=== PATIENT | female | born 1990 | race Caucasian/White ===

== ENCOUNTER 2016-08-07 22:09 | Emergency (ER) | payer BC, OTHER ==
[2016-08-07 22:18] VITALS: BP 128/74; PULSE 96; TEMP 98.6; BMI 32.0
[2016-08-07 23:16] LABS: BASOPHIL 0.2 % (0-2.0); MCH 27.4 pg (25.7-33.7); MCHC 33.4 g/dl (32.0-36.0); MEAN CELL VOLUME 82.1 fl (80-96); MEAN PLT VOLUME 7.3 fl (7.5-11.1); NEUTROPHILS 54.9 % (42.8-82.8); PLATELET COUNT 261 K/MM3 (134-434); RDW 13.7 % (11.6-15.6); WHITE BLOOD COUNT 11.3 K/mm3 (4.0-10.0)
[2016-08-07] MEDS ORDERED: SODIUM CHLORIDE 1,000 ML IV STA (23:16)
--- NOTE | 2016-08-07 23:16 | PDOC ---
History of Present Illness - History of Present Illness Initial Comments: 08/07/16 23:38 Patient is a 26 year old female (16 weeks, LNMP: 06/26/16) with no significant medical hx who is presenting to the ED with two days of vaginal bleeding with some mild abdominal cramping. The patient reports that her bleeding is similar to spotting and not as heavy as her menses. She mostly notices when she wipes and reports that her blood is bright red. The patient also denies any factors that aggravate or alleviate her abdominal cramping. Patient had one US prior but states that they were not able to visualize an IUP. Denies any vaginal discharge, other complaints, lightheadedness, chest pain, nausea, vomiting, or diarrhea. Denies hx of prior ectopic or miscarriage. <Rebecca Carreno - Last Filed: 08/08/16 01:45> - General History Source: Patient <Angelica Colbert - Last Filed: 08/08/16 02:24> - General Chief Complaint: Vaginal Bleeding Stated Complaint: VAGINAL BLEEDING Past History <Rebecca Carreno - Last Filed: 08/08/16 01:45> - Past Medical History Asthma: No Cancer: No Cardiac Disorders: No Diabetes: No HTN: No Seizures: No Thyroid Disease: No - Reproductive History Is Patient Now?: Yes (#): 1 Para: 1 Therapeutic (s) & number: No - Psycho/Social/Smoking Cessation Hx Suicidal Ideation: No Smoking Status: No Smoking History: Never smoked Have you smoked in the past 12 months: No Number of Cigarettes Smoked Daily: 0 Hx Alcohol Use: No Drug/Substance Use Hx: No Hx Substance Use Treatment: No <Angelica Colbert - Last Filed: 08/08/16 02:24> - Past Medical History Allergies/Adverse Reactions: Allergies Allergy/AdvReac Type Severity Reaction Status Date / Time No Known Allergies Allergy Verified 08/07/16 22:16 Home Medications: Ambulatory Orders NK [No Known Home Medication] 08/21/15 Review of Systems - Review of Systems Comments:: 08/07/16 23:38 GENERAL/CONSTITUTIONAL: No fever or chills. No weakness. HEAD, EYES, EARS, NOSE AND THROAT: No change in vision. No ear pain or discharge. No sore throat. CARDIOVASCULAR: No chest pain or shortness of breath. RESPIRATORY: No cough, wheezing, or hemoptysis. GASTROINTESTINAL: Abdominal cramping. No nausea, vomiting, diarrhea or constipation. GENITOURINARY: Vaginal bleeding. No dysuria, frequency, or change in urination. MUSCULOSKELETAL: No joint or muscle swelling or pain. No neck or back pain. ENDOCRINE: No increased thirst. No abnormal weight change. SKIN: No rash NEUROLOGIC: No headache, vertigo, loss of consciousness, or change in strength/ sensation. <Rebecca Carreno - Last Filed: 08/08/16 01:45> *Physical Exam - Vital Signs Last Vital Signs Temp Pulse Resp BP Pulse Ox 98.6 F 96 H 18 128/74 99 08/07/16 22:16 08/07/16 22:16 08/07/16 22:16 08/07/16 22:16 08/07/16 22:16 - Physical Exam Comments: 08/07/16 23:39 GENERAL: Awake, alert, and fully oriented, in no acute distress HEAD: No signs of trauma EYES: PERRLA, EOMI, sclera anicteric, conjunctiva clear ENT: Auricles normal inspection, hearing grossly normal, nares patent, oropharynx clear without exudates. Moist mucosa NECK: Normal ROM, supple, no lymphadenopathy, JVD, or masses LUNGS: Breath sounds equal, clear to auscultation bilaterally. No wheezes, and no crackles HEART: Regular rate and rhythm, normal S1 and S2, no murmurs, rubs or gallops ABDOMEN: Soft, nontender, normoactive bowel sounds. No guarding, no rebound. No masses EXTREMITIES: Normal range of motion, no edema. No clubbing or cyanosis. No cords, erythema, or tenderness NEUROLOGICAL: Cranial nerves II through XII grossly intact. Normal speech, normal gait SKIN: Warm, Dry, normal turgor, no rashes or lesions noted. HEMATOLOGIC/LYMPHATIC: No anemia, easy bleeding, or history of blood clots. ALLERGIC/IMMUNOLOGIC: No hives or skin allergy. PELVIC: Os is opened 2 mm. Scant blood vaginal vault. No adnexal tenderness or fullness. No CMT. <Rebecca Carreno - Last Filed: 08/08/16 01:45> - Vital Signs Last Vital Signs Temp Pulse Resp BP Pulse Ox 98.6 F 96 H 18 128/74 99 08/07/16 22:16 08/07/16 22:16 08/07/16 22:16 08/07/16 22:16 08/07/16 22:16 <FilemonAngelica - Last Filed: 08/08/16 02:24> ED Treatment Course - LABORATORY CBC & Chemistry Diagram: 08/07/16 22:42 08/07/16 22:42 - ADDITIONAL ORDERS Additional order review: 08/07/16 22:42 RBC 4.12 MCV 82.1 MCHC 33.4 RDW 13.7 MPV 7.3 L Neutrophils % 54.9 Lymphocytes % 37.7 Monocytes % 6.2 Eosinophils % 1.0 Basophils % 0.2 - RADIOLOGY Radiograph Interpretation: 08/08/16 01:46 [employer] Librarian: (ben) Report Date: 08/08/2016 00:49:00 Report Status: Preliminary Begin of Report Content Referring Physician: Angelica Colbert Patient Name: Theodora Paredes THIS IS A PRELIMINARY REPORT FROM IMAGING CHIEF SERVICE OBSERVER IMAGES: 37 EXAM DATE AND TIME: 2016-08-08 00:49:18.0 EXAM: ULTRASOUND PELVIS, COMPLETE AND TRANSVAGINAL ULTRASOUND AND DUPLEX SCAN PELVIS, INCOMPLETE No ovarian torsion. Color flow with appropriate arterial waveforms. No free fluid. Small intrauterine possible gestational sac 4 weeks 5 days by measurement without discrete yolk sac or pole. Endometrial stripe complex 10 mm thick. No adnexal masses appreciated. Findings could represent early gestation, but advise correlation with serial quantitative beta-hCG and follow- up ultrasound as clinically indicated to exclude possibility of nonvisualized ectopic . Unremarkable visualized portion of bladder. THIS DOCUMENT HAS BEEN ELECTRONICALLY SIGNED Mary Kate David M.D. 08/08/2016 01:34 HARPAL Birght Please call Imaging Special Education Supervisor [phone] ([phone]) with questions. End of Report Content <Rebecca Carreno - Last Filed: 08/08/16 01:45> - LABORATORY CBC & Chemistry Diagram: 08/07/16 22:42 08/07/16 22:42 <Angelica Colbert - Last Filed: 08/08/16 02:24> Medical Decision Making - Medical Decision Making 08/07/16 23:14 26 yo F wit at 6 weeks by LMP 06/26/16 here with vaginal bleeding. does have mild cramping. started 2 days ago. no lightheaded. no prior ectopic or miscarriage. no mod fators. on exam awake alert, lung clear no wheeze, heart RR Rno m/r/g abd soft NT ND. pelvic scant blood in vault, os open fingertip, no adnexal tenderness. ext wwp skin warm and dry. differential: ectopic vs. threatened ab vs. incomplete ab. plan labs blood type , hcg, cbc tvus. <Angelica Colbert - Last Filed: 08/08/16 02:24> *DC/Admit/Observation/Transfer - Attestations Scribe Attestion: 08/07/16 23:39 Documentation prepared by Rebecca Carreno, acting as clinical specialist medical device for Angelica Colbert MD. <Rebecca Carreno - Last Filed: 08/08/16 01:45> - Discharge Dispostion Admit: No <Angelica Colbert - Last Filed: 08/08/16 02:24> Diagnosis at time of Disposition: Threatened - Discharge Dispostion Disposition: HOME - Patient Instructions Printed Discharge Instructions: Threatened Additional Instructions: you need to follow up with obstetrics. you will need a repeat ultrasound and lab test within one week as you are too early in to detect anything on ultrasound. your hcg level is 121 today. return for severe or worsening pain or any concerns. you can follow up with the womens clinic at [facility] call [phone] to schedule.
[2016-08-07 23:44] LABS: URINE APPEARANCE CLEAR; URINE BILIRUBIN NEGATIVE (NEGATIVE); URINE COLOR LTYELLOW; URINE GLUCOSE (UA) NEGATIVE (NEGATIVE); URINE KETONE NEGATIVE (NEGATIVE); URINE LEUK ESTERASE NEGATIVE (NEGATIVE); URINE NITRITE NEGATIVE (NEGATIVE); URINE PROTEIN NEGATIVE (NEGATIVE); URINE UROBILINOGEN NEGATIVE E.U./dl (0.2-1.0)
[2016-08-08] MEDS ORDERED: ACETAMINOPHEN 325 MG TABLET (FP) ONE (00:44)
[2016-08-08 00:57] LABS: ALBUMIN 3.6 g/dl (3.4-5.0); ANION GAP 12 (8-16); BILIRUBIN,TOTAL 0.2 mg/dL (0.2-1.0); CALCIUM 8.2 mg/dL (8.5-10.1); CO2 26 mmol/L (21-32); CREATININE 0.7 mg/dL (0.55-1.02); GLUCOSE,RANDOM 101 mg/dL (74-106); SGOT/AST 17 U/L (15-37); SGPT/ALT 27 U/L (12-78); TOT PROT 6.8 g/dl (6.4-8.2)
[2016-08-08 00:59] LABS: ALK PHOS 56 U/L (45-117)
[2016-08-08 01:06] LABS: URINE BLOOD 2+ (NEGATIVE)
[2016-08-08 02:08] LABS: URINE MUCUS RARE; URINE RBC 2 /hpf (0-3); URINE WBC 1 /hpf (3-5)
== END 2016-08-08 02:29 | disposition home or self-care (01) ==
LOC: JER 22:09
DX: O20.0 Threatened abortion (principal); Z3A.01 Less than 8 weeks gestation of pregnancy
CPT/HCPCS: 36415; 76817-TC; 80053; 81003; 81015; 84702; 85025; 86850; 86900; 86901; 99283-25

== ENCOUNTER 2017-01-11 12:27 | Emergency (ER) | payer BC, OTHER ==
[2017-01-11 12:31] VITALS: TEMP 98.3; BMI 32.0
[2017-01-11 13:26] LABS: BASOPHIL 0.3 % (0-2.0); EOSINOPHIL 0.5 % (0-4.5); MCH 26.9 pg (25.7-33.7); MCHC 32.9 g/dl (32.0-36.0); MEAN CELL VOLUME 81.7 fl (80-96); MEAN PLT VOLUME 7.2 fl (7.5-11.1); NEUTROPHILS 76.5 % (42.8-82.8); PLATELET COUNT 237 K/MM3 (134-434); WHITE BLOOD COUNT 10.5 K/mm3 (4.0-10.0)
--- NOTE | 2017-01-11 13:42 | PDOC ---
History of Present Illness - General Chief Complaint: Pain Stated Complaint: ABD CRAMPING (7 WKS ) Time Seen by Provider: 01/11/17 12:45 - History of Present Illness Initial Comments: 01/11/17 13:13 Patient is a 26 y.o. (1 child, 1 miscarriage) at 5 weeks gestation who presents c/o 1 day h/o of R sided lower back pain as well as abdominal cramping as well as vaginal spotting yesterday (01/10). Patient became concerned she was having a spontaneous and presented to our ED. Patient denies any fevers, chills, vomiting, chest pain or shortness of breath but does endorse nausea though she has been tolerating PO intake. Patient notes her LMP was in early November and she has been receiving pre-oscar care at [facility]. Surgical: none NKDA PMD Social: denies cigarettes, denies alcohol, denies recreational drugs Past History - Past Medical History Allergies/Adverse Reactions: Allergies Allergy/AdvReac Type Severity Reaction Status Date / Time No Known Allergies Allergy Verified 01/11/17 12:31 Home Medications: Ambulatory Orders NK [No Known Home Medication] 08/21/15 Asthma: No Cancer: No Cardiac Disorders: No Diabetes: No HTN: No Seizures: No Thyroid Disease: No - Reproductive History (#): 1 Para: 1 Therapeutic (s) & number: No - Suicide/Smoking/Psychosocial Hx Smoking Status: No Smoking History: Never smoked Have you smoked in the past 12 months: No Number of Cigarettes Smoked Daily: 0 Hx Alcohol Use: No Drug/Substance Use Hx: No Hx Substance Use Treatment: No Review of Systems - Review of Systems Constitutional: No: Chills, Fever Respiratory: No: Shortness of Breath Cardiac (ROS): No: Chest Pain ABD/GI: Yes: Abdominal cramping. No: Constipated, Diarrhea, Nausea, Vomiting All Other Systems: Reviewed and Negative *Physical Exam - Vital Signs Last Vital Signs Temp Pulse Resp BP Pulse Ox 98.3 F 86 20 120/63 98 01/11/17 12:28 01/11/17 12:28 01/11/17 12:28 01/11/17 12:28 01/11/17 12:28 - Physical Exam General Appearance: Yes: Nourished, Appropriately Dressed Neck: positive: Trachea midline, Supple Respiratory/Chest: positive: Lungs Clear Cardiovascular: positive: S1, S2 Female Pelvic Exam: positive: normal external exam, cervical os closed, other ( Cervical os closed; no active bleed, no blood in vaginal vault). negative: CMT Gastrointestinal/Abdominal: positive: Normal Bowel Sounds, Soft Musculoskeletal: negative: CVA Tenderness (R), CVA Tenderness (L) Integumentary: positive: Normal Color, Dry, Warm Neurologic: positive: Fully Oriented, Alert Procedures - Bedside Ultrasound Bedside Ultrasound: pole framer machine Remarks: 01/11/17 19:24 IUP appreciated with visible Heart tones; small amount of free fluid in pelvic cavity. ED Treatment Course - LABORATORY CBC & Chemistry Diagram: 01/11/17 13:08 01/11/17 13:10 - RADIOLOGY Radiology Studies Ordered: Category Date Time Status TRANSVAGINAL US PREG [US] Stat Ultrasound 01/11/17 13:09 Ordered Medical Decision Making - Medical Decision Making 01/11/17 17:04 Patient is a 26 y.o. female at a self-estimated 5 weeks gestation who presents with RLQ abdominal pain and resolved vaginal spotting. Initial DDx is for spontaneous vs. ectopic . PLAN: 1. Transvaginal U/S 2. Serum HCG 3. CBC, CMP Reassess 01/11/17 19:25 Bedside Transvaginal U/S shows IUP with small amount of fluid in pelvic cavity. CBC shows no leukocytosis, CMP negative for any electrolyte abnormalities 01/11/17 19:26 Formal Transvaginal U/S shows single IUP dated @ 6 weeks and 3 days; FHR 127 bpm and confirms small amount of free fluid in the pelvis. As patient is improved, ambulatory, tolerating PO intake and understands her follow-up care patient is discharged home with return precautions. *DC/Admit/Observation/Transfer Diagnosis at time of Disposition: - Discharge Dispostion Disposition: HOME Condition at time of disposition: Good Admit: No - Referrals Referrals: Sukhdev Malhotra MD [Primary Care Provider] - - Patient Instructions Printed Discharge Instructions: DI for Vaginal Bleeding During Additional Instructions: Please follow up with your livestock counter in the next 3 days. Please return to the ED should you experience repeated vaginal spotting or an increase in severity of abdominal cramping. A copy of your transvaginal ultrasound and labs have been provided to you to take to your livestock counter appointment.
[2017-01-11 13:50] LABS: ALBUMIN 3.7 g/dl (3.4-5.0); ALK PHOS 48 U/L (45-117); ANION GAP 11 (8-16); BILIRUBIN,TOTAL 0.3 mg/dL (0.2-1.0); CALCIUM 8.2 mg/dL (8.5-10.1); CO2 26 mmol/L (21-32); CREATININE 0.5 mg/dL (0.55-1.02); GLUCOSE,RANDOM 131 mg/dL (74-106); SGOT/AST 12 U/L (15-37); SGPT/ALT 18 U/L (12-78); TOT PROT 7.2 g/dl (6.4-8.2)
[2017-01-11 13:53] LABS: URINE APPEARANCE CLOUDY; URINE BILIRUBIN NEGATIVE (NEGATIVE); URINE BLOOD NEGATIVE (NEGATIVE); URINE COLOR YELLOW; URINE GLUCOSE (UA) NEGATIVE (NEGATIVE); URINE KETONE TRACE (NEGATIVE); URINE NITRITE NEGATIVE (NEGATIVE); URINE PROTEIN NEGATIVE (NEGATIVE); URINE UROBILINOGEN NEGATIVE mg/dL (0.2-1.0)
[2017-01-11 17:31] VITALS: BP 118/65; PULSE 72
[2017-01-11 17:37] LABS: URINE LEUK ESTERASE Negative (NEGATIVE)
== END 2017-01-11 17:45 | disposition home or self-care (01) ==
LOC: JER 12:27
DX: O26.891 Other specified pregnancy related conditions, first trimester (principal); R10.30 Lower abdominal pain, unspecified; Z3A.01 Less than 8 weeks gestation of pregnancy
CPT/HCPCS: 36415; 76817-TC; 80053; 81003; 84702; 84703; 85025; 99285-25

== ENCOUNTER 2017-02-17 09:22 | Emergency (ER) | payer BC, OTHER ==
[2017-02-17 09:45] VITALS: BP 121/55; PULSE 88; TEMP 98; BMI 32.5
[2017-02-17 10:49] LABS: URINE APPEARANCE CLEAR; URINE BILIRUBIN NEGATIVE (NEGATIVE); URINE BLOOD NEGATIVE (NEGATIVE); URINE COLOR LT. YELLOW; URINE GLUCOSE (UA) NEGATIVE (NEGATIVE); URINE KETONE NEGATIVE (NEGATIVE); URINE NITRITE NEGATIVE (NEGATIVE); URINE PROTEIN NEGATIVE (NEGATIVE); URINE UROBILINOGEN 0.2 mg/dL (0.2-1.0)
[2017-02-17] MEDS ORDERED: ACETAMINOPHEN 500 MG TABLET (FP) PO ONE (11:09)
[2017-02-17] MEDS ORDERED: ACETAMINOPHEN 325 MG TABLET (FP) ONE (11:15)
--- NOTE | 2017-02-17 11:24 | PDOC ---
History of Present Illness - General Chief Complaint: Back Pain Stated Complaint: BACK PAIN (11 WKS ) Time Seen by Provider: 02/17/17 10:19 History Source: Patient Exam Limitations: No Limitations - History of Present Illness Travel History: No Initial Comments: 02/17/17 11:48 26-year-old female complaints of left lower back pain rated down her left buttock to the back of her left leg intimately for the past week. Patient states took Tylenol with moderate improvement but states pain is worsened with prolonged standing or ambulation. Patient denies left lower extremity edema, low back pain history, recent fall, change in urine pattern, change in bowel pattern, or rash. Patient states is 11 weeks and under the care of Dr. Sharma. Patient states had an ultrasound done 2 weeks ago with normal IUP findings. Patient has no complaints of vaginal discharge, vaginal bleeding, dyspareunia, but does complain of lower mid suprapubic pressure intermittently for the past few days. Timing/Duration: reports: intermittent Quality: reports: moderate Abdominal Pain Onset Location: reports: suprapubic Pain Radiation: reports: back Aggravating Factors: improves with: Movement Alleviating Factors: improves with: Rest Past History - Travel Traveled outside of the country in the last 30 days: No Close contact w/someone who was outside of country & ill: No - Past Medical History Allergies/Adverse Reactions: Allergies Allergy/AdvReac Type Severity Reaction Status Date / Time No Known Allergies Allergy Verified 02/17/17 09:43 Home Medications: Ambulatory Orders Dke095/FA/Omega3/Dha/Fish Oil [ Gummies] 1 each PO DAILY 01/24/17 Asthma: No Cancer: No Cardiac Disorders: No COPD: No Diabetes: No HTN: No Seizures: No Thyroid Disease: No - Reproductive History Is Patient Now?: Yes (#): 3 Para: 1 Therapeutic (s) & number: No Spontaneous : 1 - Suicide/Smoking/Psychosocial Hx Smoking Status: No Smoking History: Never smoked Have you smoked in the past 12 months: No Number of Cigarettes Smoked Daily: 0 Hx Alcohol Use: No Drug/Substance Use Hx: No Substance Use Type: None Hx Substance Use Treatment: No Patient Lives Alone: No Lives with/in: spouse/SO Review of Systems - Review of Systems Able to Perform ROS?: Yes Constitutional: No: Symptoms Reported HEENTM: No: Symptoms Reported Respiratory: No: Symptoms reported Cardiac (ROS): No: Symptoms Reported ABD/GI: Yes: Abdominal cramping : No: Symptoms Reported Musculoskeletal: Yes: Back Pain, Muscle Pain (left buttock) Integumentary: No: Symptoms Reported Neurological: No: Symptoms reported *Physical Exam - Vital Signs Last Vital Signs Temp Pulse Resp BP Pulse Ox 98.0 F 88 18 121/55 100 02/17/17 09:43 02/17/17 09:43 02/17/17 09:43 02/17/17 09:43 02/17/17 09:43 - Physical Exam General Appearance: Yes: Nourished, Appropriately Dressed. No: Apparent Distress Neck: positive: Normal Thyroid, Supple Respiratory/Chest: positive: Lungs Clear, Normal Breath Sounds. negative: Respiratory Distress, Accessory Muscle Use Cardiovascular: positive: Regular Rhythm, Regular Rate. negative: Murmur Female Pelvic Exam: positive: normal external exam (no discharge or bleding) Gastrointestinal/Abdominal: positive: Normal Bowel Sounds, Soft, Distended (mild ), Tenderness (midsuprapubic) Musculoskeletal: negative: Vertebral Tenderness (no midline tenderness. + lt paraspinous tenderness at l5 level. + lt sciatica tenderness) Extremity: positive: Normal Capillary Refill. negative: Pedal Edema Integumentary: positive: Normal Color, Warm, Moist Neurologic: positive: Normal Mood/Affect, Motor Strength 5/5 (ambulatory) ED Treatment Course - ADDITIONAL ORDERS Additional order review: Laboratory Results 02/17/17 10:40 Urine Color Lt. yellow Urine Appearance Clear Urine pH 6.0 Ur Specific [place] 1.025 Urine Protein Negative Urine Glucose (UA) Negative Urine Ketones Negative Urine Blood Negative Urine Nitrite Negative Urine Bilirubin Negative Urine Urobilinogen 0.2 - RADIOLOGY Radiology Studies Ordered: Category Date Time Status <14WKS US [US] Stat Ultrasound 02/17/17 11:09 Ordered Medical Decision Making - Medical Decision Making 02/17/17 11:26 Patient here with left lower back pain rating down her left buttock. Patient also states with complaints of intermittent mid suprapubic pressure. Patient denies urinary complaints fever, vaginal bleeding or discharge. Patient on exam had mid suprapubic tenderness and left paraspinous tenderness at L5 level along with left sciatic tenderness. Patient ordered for Tylenol 975 mg., UA, urine culture and ultrasound. 02/17/17 13:39 Laboratory Tests 02/17/17 10:40 Urine Ketones Negative Urine Blood Negative Urine Nitrite Negative Urine Bilirubin Negative Ur Leukocyte Esterase Pending Ultrasound shows a single viable intrauterine gestation approximately 12 weeks 1 day. Pt states feeling better *DC/Admit/Observation/Transfer Diagnosis at time of Disposition: Sciatica of left side, Abdominal pain during in first trimester - Discharge Dispostion Disposition: HOME Condition at time of disposition: Good - Referrals Referrals: Sukhdev Malhotra MD [Primary Care Provider] - - Patient Instructions Printed Discharge Instructions: DI for Sciatica, DI for Abdominal Pain -- Early Additional Instructions: May take Tylenol for discomfort and please follow-up with your LITIGATION SECRETARY as needed. - Post Discharge Activity
[2017-02-17 17:11] LABS: URINE LEUK ESTERASE Negative (NEGATIVE)
== END 2017-02-17 13:52 | disposition home or self-care (01) ==
LOC: JERFT 09:22 → JER 09:22
DX: O99.351 Diseases of the nervous system complicating pregnancy, first trimester (principal); M54.42 Lumbago with sciatica, left side; Z3A.11 11 weeks gestation of pregnancy
CPT/HCPCS: 76801-TC; 81003; 99282-25

== ENCOUNTER 2017-07-11 15:52 | Emergency (ER) | payer BC, OTHER ==
[2017-07-11 16:00] VITALS: BP 115/68; PULSE 112; TEMP 98.2; BMI 34.7
[2017-07-11] MEDS ORDERED: ACETAMINOPHEN 325 MG TABLET (FP) PO ONE (16:54)
--- NOTE | 2017-07-11 16:55 | PDOC ---
History of Present Illness - General Chief Complaint: Respiratory Stated Complaint: COUGH (32 WKS ) Time Seen by Provider: 07/11/17 16:43 History Source: Patient Exam Limitations: No Limitations - History of Present Illness Initial Comments: 07/11/17 16:50 Mother comes in with complaints of congestion, moist nonproductive cough, with no fevers. Has used Tylenol with minimal resolved. No purulent drainage from nose, denies phlegm production, states throat is sore, and has copious postnasal drainage. Timing/Duration: reports: just prior to arrival, intermittent Severity: reports: mild, moderate Associated Symptoms: reports: cough, nasal congestion, nasal drainage. denies: fever/chills Past History - Travel Traveled outside of the country in the last 30 days: No Close contact w/someone who was outside of country & ill: No - Past Medical History Allergies/Adverse Reactions: Allergies Allergy/AdvReac Type Severity Reaction Status Date / Time No Known Allergies Allergy Verified 07/11/17 16:00 Home Medications: Ambulatory Orders Pnv No.103/Folic/Om3s/Fish Oil [ Gummies] 1 each PO DAILY 01/24/17 Asthma: No Cancer: No Cardiac Disorders: No COPD: No Diabetes: No HTN: No Seizures: No Thyroid Disease: No - Reproductive History (#): 3 Para: 1 Therapeutic (s) & number: No Spontaneous : 1 - Suicide/Smoking/Psychosocial Hx Smoking Status: No Smoking History: Never smoked Have you smoked in the past 12 months: No Number of Cigarettes Smoked Daily: 0 Hx Alcohol Use: No Drug/Substance Use Hx: No Substance Use Type: None Hx Substance Use Treatment: No Review of Systems - Review of Systems Able to Perform ROS?: Yes Is the patient limited Uzbek proficient: Yes Constitutional: Yes: Symptoms Reported, See HPI, Malaise. No: Fever HEENTM: Yes: Symptoms Reported, See HPI, Nose Congestion Respiratory: Yes: Cough. No: Shortness of Breath, Wheezing Musculoskeletal: Yes: See HPI All Other Systems: Reviewed and Negative *Physical Exam - Vital Signs Last Vital Signs Temp Pulse Resp BP Pulse Ox 98.2 F 112 H 20 115/68 99 07/11/17 15:58 07/11/17 15:58 07/11/17 15:58 07/11/17 15:58 07/11/17 15:58 - Physical Exam General Appearance: Yes: Nourished, Appropriately Dressed, Apparent Distress, Mild Distress HEENT: positive: AKBAR (glassy), Normal ENT Inspection, TMs Normal (congested but landmarks easily visualized), Pharynx Normal, Nasal Congestion, Rhinorrhea. negative: Pharyngeal Erythema Neck: positive: Supple. negative: Tender Respiratory/Chest: positive: Lungs Clear, Normal Breath Sounds. negative: Wheezing Gastrointestinal/Abdominal: positive: Soft (gravid belly) Musculoskeletal: negative: CVA Tenderness Extremity: positive: Normal Capillary Refill, Normal Inspection Integumentary: positive: Normal Color, Dry, Warm, Pale Neurologic: positive: game tester II-XII NML intact, Fully Oriented, Alert, Normal Mood/ Affect, Normal Response, Motor Strength /5 Progress Note - Progress Note Progress Note: Upper respiratory infection, mild. No evidence of bacterial infection therefore will hold antibiotic therapy and encourage conservative measures to avoid complications with . *DC/Admit/Observation/Transfer Diagnosis at time of Disposition: Common cold virus - Discharge Dispostion Disposition: HOME Condition at time of disposition: Stable Admit: No - Referrals - Patient Instructions Additional Instructions: Rest, drink lots of fluids: Teas, water, soups, Pedialyte Saltwater gargles Steamy showers/seem to face break up mucus Avoid contact with others until fevers and cough resolved Lots of handwashing and good hygiene Tylenol for fever and pain May use Benadryl for an antihistamine Followup with private physician in one to 2 days as needed Return to emergency department for worsened symptoms, fevers, dehydration - Post Discharge Activity Forms/Work/School Notes: Back to Work
[2017-07-11] MEDS ORDERED: ACETAMINOPHEN 325 MG TABLET (FP) ONE (16:56)
== END 2017-07-11 16:58 | disposition home or self-care (01) ==
LOC: JERFT 15:52
DX: O26.891 Other specified pregnancy related conditions, first trimester (principal); O99.513 Diseases of the respiratory system complicating pregnancy, third trimester; J06.9 Acute upper respiratory infection, unspecified; B97.89 Other viral agents as the cause of diseases classified elsewhere; Z3A.32 32 weeks gestation of pregnancy
CPT/HCPCS: 99281-25

== ENCOUNTER 2018-03-21 18:57 | Emergency (ER) | payer OTHER ==
[2018-03-21 19:19] VITALS: BP 109/54; PULSE 123; TEMP 101.7; BMI 26.9
[2018-03-21] MEDS ORDERED: ACETAMINOPHEN 500 MG TABLET (FP) PO ONE (19:26)
[2018-03-21] MEDS ORDERED: SODIUM CHLORIDE 1,000 ML IV STA (19:31)
--- NOTE | 2018-03-21 19:41 | PDOC ---
History of Present Illness - General Chief Complaint: Cold Symptoms Stated Complaint: ABDOMINAL PAIN, BODYACHE, FEVER Time Seen by Provider: 03/21/18 19:17 History Source: Patient Exam Limitations: Clinical Condition - History of Present Illness Initial Comments: 03/21/18 19:35 Patient with no significant past medication present with complaint of intermittent cough, weakness, fever, sore throat, body aches, diarrhea and abdominal pain. Patient reported increased pain to epigastric area with food. She reported feeling dizzy this afternoon. Denies syncope. Denies vomiting but reported mild nausea. Patient denies any other symptoms. Timing/Duration: 24 hours Past History - Past Medical History Allergies/Adverse Reactions: Allergies Allergy/AdvReac Type Severity Reaction Status Date / Time No Known Allergies Allergy Verified 03/21/18 19:12 Home Medications: Ambulatory Orders Ondansetron [Zofran Odt -] 4 mg SL BID #14 od.tablet 03/21/18 Asthma: No Cancer: No Cardiac Disorders: No COPD: No Diabetes: No HTN: No Seizures: No Thyroid Disease: No - Reproductive History (#): 3 Para: 1 Therapeutic (s) & number: No Spontaneous : 1 - Suicide/Smoking/Psychosocial Hx Smoking Status: No Smoking History: Never smoked Have you smoked in the past 12 months: No Number of Cigarettes Smoked Daily: 0 Hx Alcohol Use: No Drug/Substance Use Hx: No Substance Use Type: None Hx Substance Use Treatment: No Review of Systems - Review of Systems Able to Perform ROS?: Yes Is the patient limited Lao proficient: No Constitutional: Yes: Fever, Malaise, Weakness HEENTM: Yes: See HPI, Nose Congestion, Throat Pain. No: Blurred Vision, Recent change in vision, Ear Discharge, Nose Pain, Tinnitus, Throat Swelling, Difficulty Swallowing Respiratory: Yes: Symptoms reported, See HPI, Cough (intermittent). No: Orthopnea, Shortness of Breath, SOB with Exertion, SOB at Rest, Stridor, Wheezing, Productive cough, Hemoptysis, Other Cardiac (ROS): No: Symptoms Reported, See HPI, Chest Pain, Edema, Irregular Heart Rate, Lightheadedness, Palpitations, Syncope, Chest Tightness, Other ABD/GI: Yes: See HPI, Diarrhea, Nausea, Poor Fluid Intake, Abdominal cramping ( epigastric and right lower quadrant). No: Abdominal Distended, Abd. Pain w/ defecation, Constipated, Difficulty Swallowing, Rectal Bleeding, Vomiting : No: Symptoms Reported, Burning, Discharge, Frequency, Urgency Neurological: Yes: Headache, Weakness, Dizziness. No: Seizure, Tingling All Other Systems: Reviewed and Negative *Physical Exam - Vital Signs Last Vital Signs Temp Pulse Resp BP Pulse Ox 101.7 F H 123 H 20 109/54 L 99 03/21/18 19:12 03/21/18 19:12 03/21/18 19:12 03/21/18 19:12 03/21/18 19:12 - Physical Exam Comments: 03/21/18 19:39 GENERAL: Well developed, well nourished. Awake and alert. mild acute distress. HEENT: Normocephalic, atraumatic. PERRLA, EOMI. No conjunctival pallor. Sclera are non-icteric. Moist mucous membranes. Oropharynx is clear. NECK: Supple. Full ROM. CARDIOVASCULAR: Regular rate and rhythm. No murmurs, rubs, or gallops. Distal pulses are 2+ and symmetric. PULMONARY: No evidence of respiratory distress. Lungs clear to auscultation bilaterally. No wheezing, rales or rhonchi. ABDOMINAL: moderate tenderness to RLQ with mild tenderness to epigastric region w/o gaurding. positive psoas sign on exam with patient complaining of pain to LLQ when pressed on RLQ. Soft. Non-distended. No rebound . No organomegaly. Normoactive bowel sounds. SKIN: Warm and dry. Normal capillary refill. No rashes. NEUROLOGICAL: Alert, awake, appropriate. Gait is normal without ataxia. PSYCHIATRIC: Cooperative. Good eye contact. Appropriate mood 03/21/18 19:52 General Appearance: Yes: Nourished, Appropriately Dressed. No: Apparent Distress Moderate Sedation - Procedure Monitoring Vital Signs: Procedure Monitoring Vital Signs Temperature 101.7 F H 03/21/18 19:12 Pulse Rate 123 H 03/21/18 19:12 Respiratory Rate 20 03/21/18 19:12 Blood Pressure 109/54 L 03/21/18 19:12 O2 Sat by Pulse Oximetry (%) 99 03/21/18 19:12 ED Treatment Course - LABORATORY CBC & Chemistry Diagram: 03/21/18 19:30 03/21/18 19:30 Medical Decision Making - Medical Decision Making 03/21/18 19:41 Patient with no significant past medical history present with complaint of 24 hour history of fever, abdominal pain, nasal congestion, intermittent cough and body aches. Exam significant for moderate tenderness to right lower quadrant with positive psoas sign on exam. Patient reported feeling dizzy during exam. Rapid strep and rapid flu tests ordered. CBC, CMP and liver enzymes ordered. Beta hCG ordered to rule out . Abdominal CAT scan to be ordered to rule out appendicitis. Tylenol 1 g by mouth for fever. IV place and fluid bolus with normal saline ordered. Treat based on lab and imaging results. Patient sent to main ED for follow-up care 03/21/18 22:35 *DC/Admit/Observation/Transfer Diagnosis at time of Disposition: Gastroenteritis - Discharge Dispostion Disposition: HOME Condition at time of disposition: Stable - Prescriptions Prescriptions: Ondansetron [Zofran Odt -] 4 mg SL BID #14 od.tablet - Referrals - Patient Instructions Additional Instructions: Rest, drink lots of fluids: Teas, water, soups Nimisha jared, carbonated beverages for the bubbles May try peppermint teas Avoid heavy , spicy or fatty foods until symptoms have resolved Avoid contact with others until fevers and symptoms resolved Lots of handwashing and good hygiene Continue [id number] medications for symptomatic relief Tylenol or Motrin for fever and pain May use Zofran-one tablet dissolved on tongue as needed for nauseousness. May repeat times one every 8 hours Followup with private physician in one to 2 days as needed Return to emergency department for worsened symptoms, fevers, dehydration - Post Discharge Activity
[2018-03-21 19:49] LABS: BASO % 0.2 % (0-2.0); HEMATOCRIT 38.3 % (32.4-45.2); HEMOGLOBIN 12.3 GM/dL (10.7-15.3); LYMPH % 10.4 % (8-40); MCH 26.1 pg (25.7-33.7); MCHC 32.2 g/dl (32.0-36.0); MEAN CELL VOLUME 81.3 fl (80-96); MEAN PLT VOLUME 7.5 fl (7.5-11.1); MONO % 7.5 % (3.8-10.2); NEUT % 81.9 % (42.8-82.8); PLATELET COUNT 222 K/MM3 (134-434); RBC 4.71 M/mm3 (3.60-5.2); RDW 13.8 % (11.6-15.6); WHITE BLOOD COUNT 11.2 K/mm3 (4.0-10.0)
[2018-03-21] MEDS ORDERED: ACETAMINOPHEN 500 MG TABLET (FP) ONE (19:56)
[2018-03-21 20:00] LABS: HCG,QUALITATIVE URINE Negative
[2018-03-21 20:08] LABS: AMYLASE 60 U/L (25-115); LIPASE 149 U/L (73-393)
[2018-03-21 20:12] LABS: ALK PHOS 60 U/L (45-117); ANION GAP 7 MMOL/L (8-16); BILIRUBIN,TOTAL 0.4 mg/dL (0.2-1); BLOOD UREA NITROGEN 14 mg/dL (7-18); CALCIUM 8.1 mg/dL (8.5-10.1); CHLORIDE 103 mmol/L (98-107); CO2 26 mmol/L (21-32); CREATININE 0.8 mg/dL (0.55-1.3); GLUCOSE,RANDOM 104 mg/dL (74-106); POTASSIUM 3.9 mmol/L (3.5-5.1); SGOT/AST 13 U/L (15-37); SGPT/ALT 20 U/L (13-61); SODIUM 137 mmol/L (136-145); TOT PROT 7.7 g/dl (6.4-8.2)
[2018-03-21 20:21] LABS: URINE APPEARANCE CLEAR; URINE BILIRUBIN NEGATIVE (<2.0 mg/dL); URINE COLOR YELLOW; URINE GLUCOSE (UA) NEGATIVE (NEGATIVE); URINE KETONE NEGATIVE (NEGATIVE); URINE LEUK ESTERASE NEGATIVE (NEGATIVE); URINE NITRITE NEGATIVE (NEGATIVE); URINE PROTEIN NEGATIVE (NEGATIVE); URINE UROBILINOGEN NEGATIVE mg/dL (0.2-1.0)
--- NOTE | 2018-03-21 21:01 | PDOC ---
*Physical Exam - Vital Signs Last Vital Signs Temp Pulse Resp BP Pulse Ox 101.7 F H 123 H 20 109/54 L 99 03/21/18 19:12 03/21/18 19:12 03/21/18 19:12 03/21/18 19:12 03/21/18 19:12 - Physical Exam General Appearance: Yes: Appropriately Dressed. No: Apparent Distress HEENT: positive: Normal ENT Inspection Respiratory/Chest: positive: Lungs Clear, Normal Breath Sounds. negative: Respiratory Distress, Accessory Muscle Use Cardiovascular: positive: Regular Rhythm, Regular Rate. negative: Murmur Gastrointestinal/Abdominal: positive: Normal Bowel Sounds, Soft. negative: Tender Musculoskeletal: positive: Normal Inspection. negative: CVA Tenderness Extremity: positive: Normal Inspection, Normal Range of Motion Integumentary: positive: Normal Color, Dry, Warm Neurologic: positive: forge helper II-XII NML intact, Fully Oriented, Alert ED Treatment Course - LABORATORY CBC & Chemistry Diagram: 03/21/18 19:30 03/21/18 19:30 - ADDITIONAL ORDERS Additional order review: Laboratory Results 03/21/18 03/21/18 03/21/18 19:45 19:30 19:30 Sodium Potassium Chloride Carbon Dioxide Anion Gap BUN Creatinine Creat Clearance w eGFR Random Glucose Calcium Total Bilirubin AST ALT Alkaline Phosphatase Total Protein Albumin Total Amylase 60 Lipase 149 Urine Color Yellow Urine Appearance Clear Urine pH 7.0 Ur Specific [place] 1.024 Urine Protein Negative Urine Glucose (UA) Negative Urine Ketones Negative Urine Blood Negative Urine Nitrite Negative Urine Bilirubin Negative Urine Urobilinogen Negative Ur Leukocyte Esterase Negative Urine HCG, Qual Negative Blood Type A POSITIVE Antibody Screen Negative 03/21/18 19:30 Sodium 137 Potassium 3.9 Chloride 103 Carbon Dioxide 26 Anion Gap 7 L BUN 14 Creatinine 0.8 Creat Clearance w eGFR > 60 Random Glucose 104 Calcium 8.1 L Total Bilirubin 0.4 AST 13 L ALT 20 Alkaline Phosphatase 60 Total Protein 7.7 Albumin 4.0 Total Amylase Lipase Urine Color Urine Appearance Urine pH Ur Specific [place] Urine Protein Urine Glucose (UA) Urine Ketones Urine Blood Urine Nitrite Urine Bilirubin Urine Urobilinogen Ur Leukocyte Esterase Urine HCG, Qual Blood Type Antibody Screen 03/21/18 19:30 RBC 4.71 MCV 81.3 MCHC 32.2 RDW 13.8 MPV 7.5 Neutrophils % 81.9 D Lymphocytes % 10.4 D Monocytes % 7.5 Eosinophils % 0.0 D Basophils % 0.2 - Medications Given in the ED: ED Medications Discontinued Medications Generic Name Dose Route Start Last Admin Trade Name Hipolito PRN Reason Stop Dose Admin Acetaminophen 1,000 mg 03/21/18 19:26 03/21/18 19:56 Tylenol - PO 03/21/18 19:27 1,000 mg ONCE ONE Administration Sodium Chloride 1,000 mls @ 1,000 mls/hr 03/21/18 19:31 03/21/18 19:55 Normal Saline - IV 03/21/18 20:30 1,000 mls/hr ASDIR STA Administration Progress Note - Progress Note Progress Note: Received signout from ANGELIQUE Magana. Briefly this a 27-year-old woman is here for evaluation of cough, fevers, weakness, sore throat, body aches, abdominal pain. Influenza rapid strep testing are negative. Laboratory testing reveals a white count of 11,200 without shift. UA is benign. At present patient is pending results of CT scan to rule out appendicitis. Medical Decision Making - Medical Decision Making 03/21/18 22:25 CT of abdomen is read by imaging electronic funds transfer coordinator: Unremarkable CT of the abdomen and pelvis. The appendix has some hyperdense material within but there is no surrounding inflammatory changes to suggest appendicitis. The bowel is unremarkable. Patient is currently pain-free and abdominal exam is within normal limits. I will discharge the patient home to follow-up with a primary doctor. I discussed the physical exam findings, ancillary test results and final diagnoses with the patient. I answered all of the patient's questions. The patient was satisfied with the care received and felt comfortable with the discharge plan and treatment plan. The patient will call their primary care physician within 24 hours to arrange follow-up and will return to the Emergency Department with any new, persistent or worsening symptoms. *DC/Admit/Observation/Transfer Diagnosis at time of Disposition: Gastroenteritis - Discharge Dispostion Disposition: HOME Condition at time of disposition: Stable Decision to Admit order: No - Prescriptions Prescriptions: Ondansetron [Zofran Odt -] 4 mg SL BID #14 od.tablet - Referrals - Patient Instructions Additional Instructions: Rest, drink lots of fluids: Teas, water, soups Nimisha jared, carbonated beverages for the bubbles May try peppermint teas Avoid heavy , spicy or fatty foods until symptoms have resolved Avoid contact with others until fevers and symptoms resolved Lots of handwashing and good hygiene Continue [id number] medications for symptomatic relief Tylenol or Motrin for fever and pain May use Zofran-one tablet dissolved on tongue as needed for nauseousness. May repeat times one every 8 hours Followup with private physician in one to 2 days as needed Return to emergency department for worsened symptoms, fevers, dehydration - Post Discharge Activity
== END 2018-03-21 23:29 | disposition home or self-care (01) ==
LOC: JER 18:57
PROC: 3E0337Z Introduction of Electrolytic and Water Balance Substance into Peripheral Vein, Percutaneous Approach (ICD-10-PCS; principal; 2018-03-21)
DX: K52.9 Noninfective gastroenteritis and colitis, unspecified (principal)
CPT/HCPCS: 36415; 74177-TC; 80053; 81003; 82150; 83690; 84703; 85025; 86850; 86900; 86901; 87070; 87804; 87880; 96360; 99281-25; J7030